=== PATIENT | male | born 1985 | race Caucasian/White ===

== ENCOUNTER 2021-09-18 10:32 | Emergency (ER) | payer OTHER ==
--- NOTE | 2021-09-18 12:52 | RAD REPORT ---
EXAM DESCRIPTION: RAD - Hand Left 3 View - 09/18/2021 12:35 pm CLINICAL HISTORY: hand injury, 2nd finger COMPARISON: No comparisons FINDINGS: Soft tissue swelling is seen affecting the second finger. No fracture or dislocation seen. No radiopaque foreign body.
--- NOTE | 2021-09-18 13:11 | ER ---
Nurse's Notes [facility] Name: Papa Hill Jr Age: 36 yrs Sex: Male : 1985 Arrival Date: 09/18/2021 Time: 10:36 Bed 12 Private MD: Diagnosis: Finger Contusion Presentation: 09/18 10:59 Chief complaint: Patient states: slammed his left index finger in car door about 30 iw minutes ago. Coronavirus screen: At this time, the client does not indicate any symptoms associated with coronavirus-19. Ebola Screen: Patient negative for fever greater than or equal to 101.5 degrees Fahrenheit, and additional compatible Ebola Virus Disease symptoms Patient denies exposure to infectious person. Patient denies travel to an Ebola-affected area in the 21 days before illness onset. No symptoms or risks identified at this time. Initial Sepsis Screen: Does the patient meet any 2 criteria? No. Patient's initial sepsis screen is negative. Does the patient have a suspected source of infection? No. Patient's initial sepsis screen is negative. Risk Assessment: Do you want to hurt yourself or someone else? Patient reports no desire to harm self or others. Onset of symptoms was September 18, 2021. 10:59 Method Of Arrival: Ambulatory iw 10:59 Acuity: JAMAL 4 iw Triage Assessment: 13:00 General: Appears in no apparent distress. Behavior is calm, cooperative. iw Historical: - Allergies: 11:00 No Known Allergies; iw - Home Meds: 11:00 None [Active]; iw - PMHx: 11:00 leaking aorta; iw - PSHx: 11:00 Appendectomy; iw Screenin:19 Abuse screen: Denies threats or abuse. Denies injuries from another. Nutritional iw screening: No deficits noted. Tuberculosis screening: No symptoms or risk factors identified. Fall Risk None identified. Assessment: 12:20 General: Appears in no apparent distress. Behavior is calm, cooperative. Pain: iw Complains of pain in palmar aspect of distal phalanx of left index finger. Neuro: Level of Consciousness is awake, alert, obeys commands, Oriented to person, place, time, situation, Moves all extremities. Full function. Musculoskeletal: Range of motion: intact in all extremities, Swelling present in palmar aspect of distal phalanx of left index finger. Vital Signs: 11:00 BP 135 / 86; Pulse 75; Resp 16; Temp 98.2; Pulse Ox 99% on R/A; Weight 81.65 kg; Height iw 5 ft. 7 in. (170.18 cm); 11:00 Body Mass Index 28.19 (81.65 kg, 170.18 cm) iw ED Course: 10:36 Patient arrived in ED. am2 10:43 Carlos Summers PA is PHCP. [facility] 10:43 Perry Roman MD is Attending Physician. [facility] 11:00 Triage completed. iw 11:01 Arm band placed on. iw 12:37 Hand Left 3 View XRAY In Process Unspecified. EDMS 12:53 Carmenza Douglas, JULIET is Primary Nurse. iw 13:19 No provider procedures requiring assistance completed. Patient did not have IV access iw during this emergency room visit. Administered Medications: No medications were administered Outcome: 13:11 Discharge ordered by MD. [facility] 13:19 Discharged to home ambulatory. iw 13:19 Condition: good 13:19 Discharge instructions given to patient, Instructed on discharge instructions, follow up and referral plans. Demonstrated understanding of instructions, follow-up care. 13:20 Patient left the ED. iw Signatures: Dispatcher [employer] EDMS Carlos Summers PA PA Carmenza Tapia, RN RN iw Emily Persaud am2 Corrections: (The following items were deleted from the chart) 11:00 11:00 PMHx: None; iw iw 11:02 11:00 Pulse 75bpm; Resp 16bpm; Pulse Ox 99% RA; Temp 98.2F; 81.65 kg; Height 5 ft. 7 iw in.; BMI: 28.1; iw
--- NOTE | 2021-09-18 13:11 | EDPHYS ---
Physician Documentation [facility] Name: Papa Hill Jr Age: 36 yrs Sex: Male : 1985 Arrival Date: 09/18/2021 Time: 10:36 Bed 12 Private MD: ED Physician Perry Roman HPI: 09/18 11:20 This 36 yrs old Male presents to ER via Ambulatory with complaints of Finger Injury. jmm 11:20 The patient or guardian reports injury, pain. Onset: The symptoms/episode jmm began/occurred acutely. Modifying factors: The symptoms are alleviated by nothing, the symptoms are aggravated by nothing. Associated signs and symptoms: Pertinent negatives: fever. Is a 36-year-old male the presents emerged department after slamming his left index finger in a car door. Denies other injury.. Historical: - Allergies: 11:00 No Known Allergies; iw - Home Meds: 11:00 None [Active]; iw - PMHx: 11:00 leaking aorta; iw - PSHx: 11:00 Appendectomy; iw ROS: 11:20 Constitutional: Negative for fever, chills, and weight loss, Cardiovascular: Negative jmm for chest pain, palpitations, and edema, Respiratory: Negative for shortness of breath, cough, wheezing, and pleuritic chest pain. 11:20 MS/extremity: Positive for injury or acute deformity. 11:20 All other systems are negative. Exam: 11:20 Constitutional: This is a well developed, well nourished patient who is awake, alert, jmm and in no acute distress. Head/Face: atraumatic. Eyes: EOMI, no conjunctival erythema appreciated ENT: Moist Mucus Membranes Neck: Trachea midline, Supple Chest/axilla: Normal chest wall appearance and motion. Cardiovascular: Regular rate and rhythm. No edema appreciated Respiratory: Normal respirations, no respiratory distress appreciated Abdomen/GI: Non distended, soft Back: Normal ROM Skin: General appearance color normal 11:20 Musculoskeletal/extremity: Abrasion noted to the pad of the left index finger, no subungual hematoma appreciated to the nail plate, full range of motion noted to the DIP, less than 2-second distal cap refill, neurovascular intact. 11:20 Skin: Appearance: Color: normal in color. 11:20 Neuro: Motor: is normal. 11:20 Psych: Behavior/mood is pleasant, cooperative. Vital Signs: 11:00 BP 135 / 86; Pulse 75; Resp 16; Temp 98.2; Pulse Ox 99% on R/A; Weight 81.65 kg; Height iw 5 ft. 7 in. (170.18 cm); 11:00 Body Mass Index 28.19 (81.65 kg, 170.18 cm) iw MDM: 11:20 Patient medically screened. [facility] 13:10 Data reviewed: vital signs, nurses notes. Counseling: I had a detailed discussion with kelsey the patient and/or guardian regarding: the historical points, exam findings, and any diagnostic results supporting the discharge/admit diagnosis, radiology results, the need for outpatient follow up, to return to the emergency department if symptoms worsen or persist or if there are any questions or concerns that arise at home. 09/18 11:24 Order name: Hand Left 3 View XRAY; Complete Time: 12:55 jm Administered Medications: No medications were administered Disposition: 16:30 Co-signature as Attending Physician, ePrry Roman MD I agree with the assessment and kdr plan of care. Disposition Summary: 09/18/21 13:11 Discharge Ordered Location: Home [facility] Condition: Stable [facility] Diagnosis - Finger Contusion [facility] Followup: [facility] - With: Private Physician - When: 2 - 3 days - Reason: Recheck today's complaints, Continuance of care, Re-evaluation by your physician Discharge Instructions: - Discharge Summary Sheet jmm - Abrasion jm Forms: - Medication Reconciliation Form [facility] - Thank You Letter [facility] - Antibiotic Education [facility] - Prescription Opioid Use [facility] - Work release form eb Signatures: Dispatcher [employer] Prery Newman MD MD kdr Mickail, Joel, PA PA jmm Williams, Irene RN RN iw Corrections: (The following items were deleted from the chart) 11:00 11:00 PMHx: None; iw iw
[2021-09-18 13:23] VITALS: BP 135/86; TEMP 98.2; O2SAT 99
== END 2021-09-18 13:20 | disposition home or self-care (01) ==
LOC: ER 10:32
DX: S60.022A Contusion of left index finger without damage to nail, initial encounter (principal)
CPT/HCPCS: 99283

== ENCOUNTER 2022-03-12 12:44 | Emergency (ER) | payer OTHER ==
--- NOTE | 2022-03-12 13:07 | ER ---
Nurse's Notes [facility] Name: Papa Hill Jr Age: 36 yrs Sex: Male : 1985 Arrival Date: 03/12/2022 Time: 12:44 Bed DIS3 Private MD: Diagnosis: Encounter for removal of sutures Presentation: 03/12 12:56 Chief complaint: Patient states: Pt requesting sutures to be removed from digit #2 on kb3 left hand. Sutures were placed in this ED 7 days ago. Coronavirus screen: Vaccine status: Patient reports being unvaccinated. Client denies travel out of the [place] in the last 14 days. Ebola Screen: Patient negative for fever greater than or equal to 101.5 degrees Fahrenheit, and additional compatible Ebola Virus Disease symptoms Patient denies exposure to infectious person. Patient denies travel to an Ebola-affected area in the 21 days before illness onset. No symptoms or risks identified at this time. Initial Sepsis Screen: Does the patient meet any 2 criteria? No. Patient's initial sepsis screen is negative. Does the patient have a suspected source of infection? No. Patient's initial sepsis screen is negative. Initial Sepsis Screen: Does the patient meet any 2 criteria? No. Patient's initial sepsis screen is negative. Does the patient have a suspected source of infection? No. Patient's initial sepsis screen is negative. Risk Assessment: Do you want to hurt yourself or someone else? Patient reports no desire to harm self or others. Onset of symptoms was March 05, 2022. 12:56 Method Of Arrival: Ambulatory [facility] 12:56 Acuity: JAMAL 4 kb3 Triage Assessment: 12:57 General: Appears in no apparent distress. kb3 12:57 General: Behavior is calm, cooperative. Pain: Complains of pain in palmar aspect of kb3 distal phalanx of left middle finger Pain does not radiate. Pain currently is 5 out of 10 on a pain scale. Historical: - Allergies: 12:57 No Known Allergies; kb3 - Home Meds: 12:57 None [Active]; kb3 - PMHx: 12:57 leaking aorta; kb3 - PSHx: 12:57 Appendectomy; kb3 - Immunization history:: Adult Immunizations up to date, Client reports having NOT received the Covid vaccine. Last tetanus immunization: up to date. - Social history:: Smoking status: Patient denies any tobacco usage or history of. Vital Signs: 12:56 Pulse 62; Resp 16; Temp 97.9; Pulse Ox 100% ; Weight 88 kg; Height 5 ft. 7 in. (170.18 kb3 cm); Pain 5/10; 12:56 Body Mass Index 30.38 (88.00 kg, 170.18 cm) kb3 ED Course: 12:44 Patient arrived in ED. am2 12:47 Carlos Summers PA is PHCP. jmm 12:47 Rufino Woodall MD is Attending Physician. jmm 12:57 Triage completed. kb3 12:57 Arm band placed on right wrist. kb3 13:16 Carmenza Douglas, RN is Primary Nurse. iw Administered Medications: No medications were administered Outcome: 13:06 Discharge ordered by . m 13:16 Patient left the ED. iw Signatures: Carlos Summers PA PA jmm Williams, Irene, RN RN iw Emily Persaud am2 Shara Solitario, RN RN kb3
--- NOTE | 2022-03-12 13:07 | EDPHYS ---
Physician Documentation [facility] Name: Papa Hill Jr Age: 36 yrs Sex: Male : 1985 Arrival Date: 03/12/2022 Time: 12:44 Bed DIS3 Private MD: ED Physician Rufino Woodall HPI: 03/12 13:05 This 36 yrs old Male presents to ER via Ambulatory with complaints of Suture Removal. jmm 13:05 The patient has sutures on the dorsal aspect of middle phalanx of left index finger. jmm Sutures/sanya progress: The patient has no c/o's. The wound is well-healing with no redness, swelling, discharge, or dehiscence reported. It is unknown whether or not the patient has had similar symptoms in the past. Historical: - Allergies: 12:57 No Known Allergies; kb3 - Home Meds: 12:57 None [Active]; kb3 - PMHx: 12:57 leaking aorta; kb3 - PSHx: 12:57 Appendectomy; kb3 - Immunization history:: Adult Immunizations up to date, Client reports having NOT received the Covid vaccine. Last tetanus immunization: up to date. - Social history:: Smoking status: Patient denies any tobacco usage or history of. ROS: 13:05 Constitutional: Negative for fever, chills, and weight loss, Cardiovascular: Negative jmm for chest pain, palpitations, and edema, Respiratory: Negative for shortness of breath, cough, wheezing, and pleuritic chest pain, Abdomen/GI: Negative for abdominal pain, nausea, vomiting, diarrhea, and constipation. 13:05 Skin: Positive for laceration(s). 13:05 All other systems are negative. Exam: 13:05 Constitutional: This is a well developed, well nourished patient who is awake, alert, jmm and in no acute distress. Head/Face: atraumatic. Eyes: EOMI, no conjunctival erythema appreciated ENT: Moist Mucus Membranes Neck: Trachea midline, Supple Chest/axilla: Normal chest wall appearance and motion. Cardiovascular: Regular rate and rhythm. No edema appreciated Respiratory: Normal respirations, no respiratory distress appreciated Abdomen/GI: Non distended Back: Normal ROM 13:05 Skin: injury, laceration(s), Healing laceration of the left index finger no erythema or induration appreciated. No purulent drainage appreciated. 13:05 Neuro: Orientation: is normal, Mentation: is normal, Memory: is normal. 13:05 Psych: Behavior/mood is pleasant, cooperative. Vital Signs: 12:56 Pulse 62; Resp 16; Temp 97.9; Pulse Ox 100% ; Weight 88 kg; Height 5 ft. 7 in. (170.18 kb3 cm); Pain 5/10; 12:56 Body Mass Index 30.38 (88.00 kg, 170.18 cm) kb3 MDM: 13:05 Patient medically screened. [facility] 13:05 Data reviewed: vital signs, nurses notes. Counseling: I had a detailed discussion with [facility] the patient and/or guardian regarding: the historical points, exam findings, and any diagnostic results supporting the discharge/admit diagnosis, the need for outpatient follow up, to return to the emergency department if symptoms worsen or persist or if there are any questions or concerns that arise at home. 03/12 13:05 Order name: Wound Care: wrap finger, needs extra supplies; Complete Time: 13:16 [facility] Administered Medications: No medications were administered Disposition Summary: 03/12/22 13:06 Discharge Ordered Location: Home [facility] Condition: Stable [facility] Diagnosis - Encounter for removal of sutures [facility] Followup: [facility] - With: Private Physician - When: 1 week - Reason: Recheck today's complaints, Continuance of care, Staple/Suture removal, Re-evaluation by your physician Discharge Instructions: - Discharge Summary Sheet [facility] - Laceration Care, Adult [facility] Forms: - Medication Reconciliation Form [facility] - Thank You Letter [facility] - Antibiotic Education [facility] - Prescription Opioid Use [facility] Addendum: 03/16/2022 04:06 Co-signature as Attending Physician, Rufino Woodall MD I agree with the assessment and c short plan of care. Signatures: Rufino Woodall MD MD cha Mickail, Joel, PA PA [facility] Shara Solitario, RN RN kb3
[2022-03-12 13:32] VITALS: TEMP 97.9; O2SAT 100
== END 2022-03-12 13:16 | disposition home or self-care (01) ==
LOC: ER 12:44
DX: Z48.02 Encounter for removal of sutures (principal)
CPT/HCPCS: 99281

== ENCOUNTER 2022-03-19 17:02 | Emergency (ER) | payer OTHER ==
--- NOTE | 2022-03-19 18:06 | EDPHYS ---
Physician Documentation [facility] Name: Papa Hill Jr Age: 36 yrs Sex: Male : 1985 Arrival Date: 03/19/2022 Time: 17:02 Bed DIS3 Private MD: ED Physician Benitez Carlos HPI: 03/19 17:50 This 36 yrs old Male presents to ER via Ambulatory with complaints of Suture Removal. cp 17:50 The patient has sutures on the left middle finger. Previous treatment: The patient was cp initially treated 2 weeks ago, the care was rendered at [facility], Treatment type: The patient's original treatment included sutures, Previous recheck: the patient has not been checked since the original treatment. Sutures/sanya progress: The patient has no c/o's. The wound is well-healing with no redness, swelling, discharge, or dehiscence reported. Historical: - Allergies: 17:38 No Known Allergies; kb3 - Home Meds: 17:38 None [Active]; kb3 - PMHx: 17:38 leaking aorta; kb3 - PSHx: 17:38 Appendectomy; kb3 - Immunization history:: Adult Immunizations up to date, Client reports having NOT received the Covid vaccine. Last tetanus immunization: up to date. - Social history:: Smoking status: Patient denies any tobacco usage or history of. ROS: 17:50 Skin: Positive for laceration(s), of the left middle finger. cp 17:50 Constitutional: Negative for body aches, chills, fever. cp 17:50 All other systems are negative. Exam: 17:55 Constitutional: The patient appears in no acute distress, alert, awake, well developed, cp well nourished. 17:55 Head/Face: Normocephalic, atraumatic. cp 17:55 Cardiovascular: Rate: normal. 17:55 Respiratory: the patient does not display signs of respiratory distress, Respirations: normal. 17:55 Skin: injury, laceration(s), of the left middle finger, Wound recheck: Suture laceration closure: the wound is healing well, the edges are well approximated, no evidence of dehiscence, no drainage, no erythema, no swelling, [address] Vital Signs: 17:37 BP 147 / 71; Pulse 63; Resp 20; Temp 97.9; Pulse Ox 100% ; Weight 89.36 kg; Height 5 kb3 ft. 7 in. (170.18 cm); Pain 0/10; 17:37 Body Mass Index 30.85 (89.36 kg, 170.18 cm) kb3 MDM: 17:44 Patient medically screened. cp 18:05 Data reviewed: vital signs, nurses notes. cp 18:05 Counseling: I had a detailed discussion with the patient and/or guardian regarding: the cp historical points, exam findings, and any diagnostic results supporting the discharge/admit diagnosis, to return to the emergency department if symptoms worsen or persist or if there are any questions or concerns that arise at home. Response to treatment: the patient's symptoms have markedly improved after treatment, and as a result, I will discharge patient. Administered Medications: No medications were administered Disposition Summary: 03/19/22 18:05 Discharge Ordered Location: Home cp Problem: new cp Symptoms: have improved cp Condition: Stable cp Diagnosis - Encounter for removal of sutures cp Followup: cp - With: Private Physician - When: As needed - Reason: Worsening of condition Discharge Instructions: - Discharge Summary Sheet cp - Suture Removal, Care After cp Forms: - Medication Reconciliation Form cp - Thank You Letter cp - Antibiotic Education cp - Prescription Opioid Use cp Addendum: 03/23/2022 09:31 Co-signature as Attending Physician, Benitez Carlos DO I was immediately available on-site m s3 in the Emergency Department for consultation in the care of the patient. Signatures: Rufino Rodriges PA PA cp Sims, Marcus, DO DO ms3 Shara Solitario, RN RN kb3
--- NOTE | 2022-03-19 18:06 | ER ---
Nurse's Notes [facility] Name: Papa Hill Jr Age: 36 yrs Sex: Male : 1985 Arrival Date: 03/19/2022 Time: 17:02 Bed DIS3 Private MD: Diagnosis: Encounter for removal of sutures Presentation: 03/19 17:37 Chief complaint: Patient states: Pt reports to ED for suture removal from left hand kb3 digit #3. Coronavirus screen: Vaccine status: Patient reports being unvaccinated. Client denies travel out of the [place] in the last 14 days. Ebola Screen: Patient negative for fever greater than or equal to 101.5 degrees Fahrenheit, and additional compatible Ebola Virus Disease symptoms Patient denies exposure to infectious person. Patient denies travel to an Ebola-affected area in the 21 days before illness onset. Initial Sepsis Screen: Does the patient meet any 2 criteria? No. Patient's initial sepsis screen is negative. Does the patient have a suspected source of infection? No. Patient's initial sepsis screen is negative. Risk Assessment: Do you want to hurt yourself or someone else? Patient reports no desire to harm self or others. Onset of symptoms was March 05, 2022. 17:37 Method Of Arrival: Ambulatory kb3 17:37 Acuity: JAMAL 4 kb3 Triage Assessment: 17:38 General: Appears in no apparent distress. Behavior is calm, cooperative. Pain: Denies kb3 pain. Historical: - Allergies: 17:38 No Known Allergies; kb3 - Home Meds: 17:38 None [Active]; kb3 - PMHx: 17:38 leaking aorta; kb3 - PSHx: 17:38 Appendectomy; kb3 - Immunization history:: Adult Immunizations up to date, Client reports having NOT received the Covid vaccine. Last tetanus immunization: up to date. - Social history:: Smoking status: Patient denies any tobacco usage or history of. Screenin:09 Abuse screen: Denies threats or abuse. Denies injuries from another. Nutritional kb3 screening: No deficits noted. Tuberculosis screening: No symptoms or risk factors identified. Fall Risk None identified. Assessment: 18:09 General: See triage note. kb3 Vital Signs: 17:37 BP 147 / 71; Pulse 63; Resp 20; Temp 97.9; Pulse Ox 100% ; Weight 89.36 kg; Height 5 kb3 ft. 7 in. (170.18 cm); Pain 0/10; 17:37 Body Mass Index 30.85 (89.36 kg, 170.18 cm) kb3 ED Course: 17:02 Patient arrived in ED. am2 17:03 Rufino Rodriges PA is PHCP. cp 17:03 Benitez Carlos DO is Attending Physician. cp 17:38 Triage completed. kb3 17:38 Arm band placed on right wrist. kb3 18:09 Patient has correct armband on for positive identification. kb3 18:09 6 sutures removed from digit # 3 on left hand. Patient did not have IV access during kb3 this emergency room visit. Administered Medications: No medications were administered Medication: 18:09 VIS not applicable for this client. kb3 Outcome: 18:05 Discharge ordered by MD. cp 18:09 Discharged to home ambulatory. kb3 18:09 Condition: good 18:09 Discharge instructions given to patient, family, Instructed on discharge instructions, follow up and referral plans. wound care, Demonstrated understanding of instructions, follow-up care, medications, wound care. 18:10 Patient left the ED. kb3 Signatures: Rufino Rodriges PA PA cp Moreno, Amanda am2 Shara Solitario, RN RN kb3
[2022-03-19 18:14] VITALS: BP 147/71; TEMP 97.9; O2SAT 100
== END 2022-03-19 18:10 | disposition home or self-care (01) ==
LOC: ER 17:02
DX: Z48.02 Encounter for removal of sutures (principal)
CPT/HCPCS: 99281

== ENCOUNTER 2022-04-26 09:28 | Emergency (ER) | payer OTHER ==
[2022-04-26 10:59] LABS: SARS-COV-2 RT PCR NEGATIVE (NEGATIVE)
--- NOTE | 2022-04-26 11:08 | EDPHYS ---
Physician Documentation [facility] Name: Papa Hill Jr Age: 37 yrs Sex: Male : 1985 Arrival Date: 04/26/2022 Time: 09:29 Bed IW1 Private MD: ED Physician Perry Roman HPI: 04/26 10:12 This 37 yrs old Male presents to ER via Ambulatory with complaints of Cough, kb Congestion, Flu Symptoms. 10:12 The patient or guardian reports cough, that is intermittent, described as moderate, flu kb symptoms, low-grade fever. Onset: The symptoms/episode began/occurred 4 day(s) ago. Severity of symptoms: At their worst the symptoms were moderate, in the emergency department the symptoms are unchanged. Modifying factors: The symptoms are alleviated by nothing, the symptoms are aggravated by nothing. Associated signs and symptoms: Pertinent positives: fever, rhinorrhea, Pertinent negatives: chest pain, diarrhea, ear ache, nausea, sore throat, vomiting. The patient has not experienced similar symptoms in the past. The patient has not recently seen a physician. Pt reports cough, congestion, fever that started on Tuesday, got worse yesterday. Started amoxicillin that was at home on Tuesday. . Historical: - Allergies: 10:07 No Known Allergies; jl7 - Home Meds: 10:07 None [Active]; jl7 - PMHx: 10:07 leaking aorta; jl7 - PSHx: 10:07 Appendectomy; jl7 - Immunization history:: Client reports receiving the 2nd dose of the Covid vaccine. - Social history:: Smoking status: Patient denies any tobacco usage or history of. ROS: 10:12 Cardiovascular: Negative for chest pain, palpitations, and edema. kb 10:12 Constitutional: Positive for fever. 10:12 ENT: Positive for rhinorrhea, sinus congestion. 10:12 Respiratory: Positive for cough. 10:12 All other systems are negative. Exam: 10:12 Constitutional: This is a well developed, well nourished patient who is awake, alert, kb and in no acute distress. Head/Face: Normocephalic, atraumatic. ENT: Moist Mucous membranes Cardiovascular: Regular rate and rhythm with a normal S1 and S2. No gallops, murmurs, or rubs. No pulse deficits. Respiratory: Respirations even and unlabored. No increased work of breathing. Talking in full sentences Abdomen/GI: Soft, non-tender. No distention Skin: Warm, dry with normal turgor. Normal color. MS/ Extremity: Pulses equal, no cyanosis. Neurovascular intact. Full, normal range of motion. Neuro: Awake and alert, GCS 15, oriented to person, place, time, and situation. Moves all extremities. Normal gait. Psych: Awake, alert, with orientation to person, place and time. Behavior, mood, and affect are within normal limits. Vital Signs: 10:06 BP 141 / 81; Pulse 81; Resp 17; Temp 99.4; Pulse Ox 100% on R/A; Weight 85.28 kg; jl7 Height 5 ft. 7 in. (170.18 cm); Pain 0/10; 10:06 Body Mass Index 29.44 (85.28 kg, 170.18 cm) jl7 MDM: 10:07 Patient medically screened. kb 10:12 Data reviewed: vital signs, nurses notes. Data interpreted: Pulse oximetry: on room air kb is 100 %. Interpretation: normal. 11:07 Counseling: I had a detailed discussion with the patient and/or guardian regarding: the kb historical points, exam findings, and any diagnostic results supporting the discharge/admit diagnosis, lab results, the need for outpatient follow up, a family practitioner, to return to the emergency department if symptoms worsen or persist or if there are any questions or concerns that arise at home. 04/26 10:06 Order name: COVID-19/FLU A+B; Complete Time: 11:06 jl7 Administered Medications: No medications were administered Disposition: 16:16 Co-signature as Attending Physician, Perry Roman MD I agree with the assessment and kdr plan of care. Disposition Summary: 04/26/22 11:08 Discharge Ordered Location: Home kb Condition: Stable kb Diagnosis - Acute upper respiratory infection, unspecified kb Followup: kb - With: Emergency Department - When: As needed - Reason: Worsening of condition Followup: kb - With: Private Physician - When: 2 - 3 days - Reason: Recheck today's complaints, Continuance of care, Re-evaluation by your physician Discharge Instructions: - Discharge Summary Sheet kb - Upper Respiratory Infection, Adult, [id number] kb - Viral Respiratory Infection, [id number] kb Forms: - Medication Reconciliation Form kb - Thank You Letter kb - Antibiotic Education kb - Prescription Opioid Use kb Signatures: Dispatcher [employer] EDKatheryn Kam, BRY-C BRY-Perry Javier MD MD kdr Leal, Jahala RN RN jl7
--- NOTE | 2022-04-26 11:08 | ER ---
Nurse's Notes [facility] Name: Papa Hill Jr Age: 37 yrs Sex: Male : 1985 Arrival Date: 04/26/2022 Time: 09:29 Bed IW1 Private MD: Diagnosis: Acute upper respiratory infection, unspecified Presentation: 04/26 10:06 Chief complaint: Patient states: cough, congestion, sore throat and fever since Tuesday. jl7 Coronavirus screen: Vaccine status: Patient reports being unvaccinated. Client presents with at least one sign or symptom that may indicate coronavirus-19. Standard/surgical mask placed on the client. Ebola Screen: No symptoms or risks identified at this time. Initial Sepsis Screen: Does the patient meet any 2 criteria? No. Patient's initial sepsis screen is negative. Does the patient have a suspected source of infection? No. Patient's initial sepsis screen is negative. Risk Assessment: Do you want to hurt yourself or someone else? Patient reports no desire to harm self or others. Onset of symptoms was April 23, 2022. 10:06 Method Of Arrival: Ambulatory [facility] 10:06 Acuity: JAMAL 4 jl7 Triage Assessment: 10:07 General: Appears in no apparent distress. uncomfortable, Behavior is calm, cooperative, jl7 appropriate for age. Pain: Denies pain. Respiratory: Breath sounds are clear. Historical: - Allergies: 10:07 No Known Allergies; jl7 - Home Meds: 10:07 None [Active]; jl7 - PMHx: 10:07 leaking aorta; jl7 - PSHx: 10:07 Appendectomy; jl7 - Immunization history:: Client reports receiving the 2nd dose of the Covid vaccine. - Social history:: Smoking status: Patient denies any tobacco usage or history of. Vital Signs: 10:06 BP 141 / 81; Pulse 81; Resp 17; Temp 99.4; Pulse Ox 100% on R/A; Weight 85.28 kg; jl7 Height 5 ft. 7 in. (170.18 cm); Pain 0/10; 10:06 Body Mass Index 29.44 (85.28 kg, 170.18 cm) jl7 ED Course: 09:29 Patient arrived in ED. am2 09:30 Katheryn Almazan FNP-C is PHCP. kb 09:31 Perry Roman MD is Attending Physician. kb 10:07 Triage completed. jl7 10:07 Arm band placed on right wrist. jl7 11:23 No provider procedures requiring assistance completed. Patient did not have IV access ss during this emergency room visit. Administered Medications: No medications were administered Outcome: 11:08 Discharge ordered by . kb 11:23 Discharged to home ambulatory. ss 11:23 Condition: good 11:23 Discharge instructions given to patient, Instructed on discharge instructions, follow up and referral plans. Demonstrated understanding of instructions, follow-up care. 11:31 Patient left the ED. ss Signatures: Katheryn Almazan, GEOFFREYC LIFE SKILLS TRAINER-Juliet Cruz, RN RN ss Jj Viramontes RN RN jl7 Emily Persaud
[2022-04-26 12:13] VITALS: BP 141/81; TEMP 99.4; O2SAT 100
== END 2022-04-26 11:31 | disposition home or self-care (01) ==
LOC: ER 09:28
DX: J06.9 Acute upper respiratory infection, unspecified (principal); Z20.822 Contact with and (suspected) exposure to COVID-19
CPT/HCPCS: 0240U; 99281

== ENCOUNTER 2022-07-08 08:31 | Emergency (ER) | payer OTHER ==
[2022-07-08 09:11] LABS: Absolute Lymphocytes (CBC) 1.7 K/uL (0.7-4.9); Hematocrit 41.8 % (39.6-49.0); Lymphocytes % 35.6 % (15.3-44.8); MCV 86.9 fL (80-100); MPV 8.2 fL (7.6-11.3); RBC Red Blood Cell Count 4.81 M/uL (4.33-5.43)
--- NOTE | 2022-07-08 09:14 | RAD REPORT ---
EXAM DESCRIPTION: RAD - Chest Single View - 07/08/2022 9:06 am CLINICAL HISTORY: CHEST PAIN Chest pain. COMPARISON: No comparisons FINDINGS: Portable technique limits examination quality. The lungs are grossly clear. The heart is normal in size. No displaced fractures. IMPRESSION: No acute intrathoracic process suspected.
[2022-07-08 09:27] LABS: Protime INR 1.05
[2022-07-08 09:37] LABS: Albumin 3.9 g/dL (3.4-5.0); Bilirubin Direct 0.1 mg/dL (0-0.2); Bilirubin Total 0.5 mg/dL (0.2-1.0); Magnesium 2.3 mg/dL (1.6-2.4); Potassium 3.6 mmol/L (3.5-5.1); Protein, Total 7.3 g/dL (6.4-8.2); Troponin High Sensitivity 10.5 pg/mL (<58.9)
--- NOTE | 2022-07-08 11:50 | EKG ---
Test Date: 2022-07-08 Test Time: 08:52:59 Residential Caregiver: DEANDRE MEASUREMENT RESULTS: Intervals: Rate: 54 [place]: 156 QRSD: 96 QT: 424 QTc: 402 [place]: P: 61 [place]: 156 QRS: 69 T: 47 INTERPRETIVE STATEMENTS: Sinus bradycardia Incomplete right bundle branch block Borderline ECG No previous ECG available for comparison Electronically Signed On 07-08-22 11:50:42 ANALOG IC DESIGN ENGINEER by Babatunde Talavera
--- NOTE | 2022-07-08 12:22 | ER ---
Nurse's Notes [facility] Name: Papa Hill Jr Age: 37 yrs Sex: Male : 1985 Arrival Date: 07/08/2022 Time: 08:33 Bed DIS2 Private MD: Diagnosis: Chest pain, unspecified Presentation: 07/08 08:40 Chief complaint: Patient states: Left sided chest pain, non-radiating, intermittent, jl7 since last night with shortness of breath. Coronavirus screen: Vaccine status: Patient reports being unvaccinated. At this time, the client does not indicate any symptoms associated with coronavirus-19. Ebola Screen: No symptoms or risks identified at this time. Initial Sepsis Screen: Does the patient meet any 2 criteria? No. Patient's initial sepsis screen is negative. Does the patient have a suspected source of infection? No. Patient's initial sepsis screen is negative. Risk Assessment: Do you want to hurt yourself or someone else? Patient reports no desire to harm self or others. Onset of symptoms was July 07, 2022. 08:40 Method Of Arrival: Ambulatory jl7 08:40 Acuity: JAMAL 3 jl7 Triage Assessment: 08:44 General: Appears in no apparent distress. uncomfortable, Behavior is calm, cooperative, jl7 appropriate for age. Pain: Complains of pain in anterior aspect of left upper chest Pain does not radiate. Pain currently is 9 out of 10 on a pain scale. Pain began 1 day ago. Cardiovascular: Patient's skin is warm and dry. Historical: - Allergies: 08:44 No Known Allergies; jl7 - Home Meds: 08:44 None [Active]; jl7 - PMHx: 08:44 leaking aorta; jl7 - PSHx: 08:44 Appendectomy; jl7 - Immunization history:: Client reports having NOT received the Covid vaccine. - Social history:: Smoking status: Reported history of juuling and/or vaping. Screenin:36 Abuse screen: Denies threats or abuse. Denies injuries from another. Nutritional ss screening: No deficits noted. Assessment: 08:45 Reassessment: ABRAN Gonzalez in triage assessing pt. jl7 12:30 General: Appears in no apparent distress. comfortable, Behavior is calm, cooperative. ss Neuro: Level of Consciousness is awake, alert, obeys commands, Oriented to person, place, time, situation. Respiratory: Airway is patent Respiratory effort is even, unlabored. EENT: Nares are clear. Vital Signs: 08:40 BP 135 / 72; Pulse 70; Resp 17; Temp 98.4; Pulse Ox 100% on R/A; Weight 81.65 kg; jl7 Height 5 ft. 7 in. (170.18 cm); Pain 9/10; 08:40 Body Mass Index 28.19 (81.65 kg, 170.18 cm) 7 ED Course: 08:33 Patient arrived in ED. rg4 08:35 Carlos Summers PA is PHCP. [facility] 08:35 Redd Zarate MD is Attending Physician. [facility] 08:44 Triage completed. 7 08:44 Arm band placed on right wrist. 7 08:55 Patient placed in waiting room, Patient notified of wait time. EKG completed in triage. [facility] Results shown to MD. 08:55 Initial lab(s) drawn, by ED staff, sent to lab. Inserted saline lock: 20 gauge in right [facility] antecubital area, using aseptic technique. Blood collected. Inserted by Haven PLASENCIA. 08:55 Patient maintains SpO2 saturation greater than 95% on room air. jl7 09:08 XRAY Chest (1 view) In Process Unspecified. EDMS 12:35 No provider procedures requiring assistance completed. IV discontinued, intact, ss bleeding controlled, No redness/swelling at site. Pressure dressing applied. Administered Medications: No medications were administered Medication: 12:30 VIS not applicable for this client. ss Outcome: 12:21 Discharge ordered by MD. [facility] 12:35 Patient left the ED. ss 12:35 Discharged to home ambulatory. ss 12:35 Condition: good 12:35 Discharge instructions given to patient, Instructed on discharge instructions, follow up and referral plans. Demonstrated understanding of instructions, follow-up care. Signatures: Dispatcher [employer] EDMS Carlos Summers PA PA jmm Smirch, Shelby, RN RN Mary Pettit rg4 Jj Viramontes RN RN jl7
--- NOTE | 2022-07-08 12:22 | EDPHYS ---
Physician Documentation [facility] Name: Papa Hill Jr Age: 37 yrs Sex: Male : 1985 Arrival Date: 07/08/2022 Time: 08:33 Bed DIS2 Private MD: ED Physician Redd Zarate HPI: 07/08 08:44 This 37 yrs old Male presents to ER via Ambulatory with complaints of Chest Pain, jmm Breathing Difficulty. 08:44 The patient or guardian reports chest pain that is located primarily in the substernal m area. The pain does not radiate. Associated signs and symptoms: Pertinent negatives:. The chest pain is described as aching. Duration: The patient or guardian reports a single episode, that is still ongoing. Is a 37-year-old male that presents emerged part with complaints of substernal chest pain beginning last night, worsening this morning. Denies shortness of breath. Denies leg swelling, denies hemoptysis.. Historical: - Allergies: 08:44 No Known Allergies; jl7 - Home Meds: 08:44 None [Active]; jl7 - PMHx: 08:44 leaking aorta; jl7 - PSHx: 08:44 Appendectomy; jl7 - Immunization history:: Client reports having NOT received the Covid vaccine. - Social history:: Smoking status: Reported history of juuling and/or vaping. ROS: 08:44 Constitutional: Negative for fever, chills, and weight loss. jmm 08:44 Cardiovascular: Positive for chest pain. 08:44 All other systems are negative. Exam: 08:44 Constitutional: This is a well developed, well nourished patient who is awake, alert, jmm and in no acute distress. Head/Face: atraumatic. Eyes: EOMI, no conjunctival erythema appreciated ENT: Moist Mucus Membranes Neck: Trachea midline, Supple Chest/axilla: Normal chest wall appearance and motion. 08:44 Abdomen/GI: Non distended Back: Normal ROM Skin: General appearance color normal MS/ Extremity: Moves all extremities, no obvious deformities appreciated, no edema noted to the lower extremities Neuro: Awake and alert Psych: Behavior is normal, Mood is normal, Patient is cooperative and pleasant 08:44 Cardiovascular: Rate: normal, Rhythm: regular. 08:44 Respiratory: the patient does not display signs of respiratory distress, Respirations: normal, Breath sounds: are clear throughout. Vital Signs: 08:40 BP 135 / 72; Pulse 70; Resp 17; Temp 98.4; Pulse Ox 100% on R/A; Weight 81.65 kg; jl7 Height 5 ft. 7 in. (170.18 cm); Pain 9/10; 08:40 Body Mass Index 28.19 (81.65 kg, 170.18 cm) jl7 MDM: 08:44 Patient medically screened. [facility] 12:18 Differential diagnosis: acute myocardial infarction, acute pericarditis, anxiety, chest jmm wall pain, costochondritis, pulmonary embolus. Data reviewed: vital signs, nurses notes. Consideration of Admission/Observation. Independent interpretation of the following test(s) in the Emergency Department X-Ray: My interpretation is No infiltrate. Scoring Tools HEART Score: Total Score = 2. Counseling: I had a detailed discussion with the patient and/or guardian regarding: the historical points, exam findings, and any diagnostic results supporting the discharge/admit diagnosis, lab results, radiology results, the need for outpatient follow up, to return to the emergency department if symptoms worsen or persist or if there are any questions or concerns that arise at home. ED course: Serial troponins within normal limits. Patient advised to follow-up with his line supply for further evaluation. Patient otherwise given strict return precautions. Patient understood agrees plan of care. 02 08:51 Order name: Basic Metabolic Panel; Complete Time: 09:39 07/08 08:51 Order name: CBC with Diff; Complete Time: 09:34 07/08 08:51 Order name: D-Dimer; Complete Time: 09:34 07/08 08:51 Order name: LFT's; Complete Time: 09:39 07/08 08:51 Order name: Magnesium; Complete Time: 09:39 07/08 08:51 Order name: NT PRO-BNP; Complete Time: 09:39 07/08 08:51 Order name: PT-INR; Complete Time: 09:34 07/08 08:51 Order name: Troponin HS; Complete Time: 09:39 [facility] 07/08 08:51 Order name: XRAY Chest (1 view); Complete Time: 09:15 07/08 08:51 Order name: EKG; Complete Time: 08:52 [facility] 07/08 08:51 Order name: EKG - Nurse/Tech; Complete Time: 08:55 [facility] 07/08 08:51 Order name: IV Saline Lock; Complete Time: 09:34 [facility] 07/08 10:46 Order name: Troponin High Sensitivity: repeat; Complete Time: 12:02 [facility] 07/08 08:51 Order name: Labs collected and sent; Complete Time: 09:34 [facility] 07/08 08:51 Order name: O2 Per Protocol; Complete Time: 08:55 [facility] 07/08 08:51 Order name: O2 Sat Monitoring; Complete Time: 08:55 [facility] Administered Medications: No medications were administered Disposition Summary: 07/08/22 12:21 Discharge Ordered Location: Home [facility] Condition: Stable [facility] Diagnosis - Chest pain, unspecified jm Followup: jmm - With: Private Physician - When: 2 - 3 days - Reason: Recheck today's complaints, Continuance of care, Re-evaluation by your physician Discharge Instructions: - Discharge Summary Sheet [facility] - Nonspecific Chest Pain, Adult [facility] Forms: - Medication Reconciliation Form [facility] - Thank You Letter [facility] - Antibiotic Education [facility] - Prescription Opioid Use [facility] Signatures: Dispatcher [employer] Carlos Perez PA PA jmm Leal, Jahala, RN RN jl7
[2022-07-08 13:04] VITALS: BP 135/72; TEMP 98.4; O2SAT 100
== END 2022-07-08 12:35 | disposition home or self-care (01) ==
LOC: ER 08:31
DX: R07.89 Other chest pain (principal)
CPT/HCPCS: 36415; 71045; 80048; 80076; 83735; 83880; 84484; 85025; 85379; 85610; 93005; 99284